=== PATIENT | male | born 1995 | race Caucasian/White ===

== ENCOUNTER 2019-01-27 18:08 | Emergency (ER) | payer SELFPAY ==
[2019-01-27 18:21] VITALS: BP 105/52
[2019-01-27] MEDS ORDERED: DIPH/PERTUSS(ACELL)/TETANUS VAC/PF 0.5 ML SYR (>=10YO) IM ONE (18:34)
--- NOTE | 2019-01-27 18:34 | ER Document Report ---
ED Medical Screen (RME) - General Chief Complaint: Laceration Stated Complaint: FOOT LACERATION Time Seen by Provider: 01/27/19 18:29 Primary Care Provider: ALEXIS MARCUM MD [Primary Care Provider] - Follow up as needed Mode of Arrival: Wheelchair Information source: Patient Notes: 23-year-old male presented to ED for laceration at the base of the great toe on the left foot. He states he was walking to the bathroom and tried to go around a plastic bag and is not sure what he cut his foot on. He does not know when his last tetanus shot was. States he is not taking any medication for the discomfort he came straight to the emergency room. He states he cut it about an hour before we saw him. Patient is alert oriented respirations regular unlabored speaking in full sentences. I have greeted and performed a rapid initial assessment of this patient. A comprehensive ED assessment and evaluation of the patient, analysis of test results and completion of medical decision making process will be conducted by an additional ED providers. Physical Exam - Vital signs Vitals: Temp Pulse Resp BP Pulse Ox 97.5 F 85 16 105/52 L 96 01/27/19 18:20 01/27/19 18:20 01/27/19 18:20 01/27/19 18:20 01/27/19 18:20 Course - Vital Signs Vital signs: Temp Pulse Resp BP Pulse Ox 97.5 F 85 16 105/52 L 96 01/27/19 18:20 01/27/19 18:20 01/27/19 18:20 01/27/19 18:20 01/27/19 18:20 Doctor's Discharge - Discharge Referrals: ALEXIS MARCUM MD [Primary Care Provider] - Follow up as needed
--- NOTE | 2019-01-27 18:59 | RADIOLOGY REPORT (SQ) ---
EXAM DESCRIPTION: FOOT LEFT COMPLETE COMPLETED DATE/TIME: 01/27/2019 6:48 pm REASON FOR STUDY: laceration at the base of the great toe COMPARISON: None. NUMBER OF VIEWS: Three views. TECHNIQUE: AP, lateral and oblique radiographic images acquired of the left foot. LIMITATIONS: None. FINDINGS: MINERALIZATION: Normal. BONES: No acute fracture or dislocation. No worrisome bone lesions. JOINTS: No effusions. SOFT TISSUES: No soft tissue swelling. No foreign body. OTHER: No other significant finding. IMPRESSION: NEGATIVE STUDY OF THE LEFT FOOT. NO RADIOGRAPHIC EVIDENCE OF ACUTE INJURY. TECHNICAL DOCUMENTATION: JOB ID: [id number] [employer]- All Rights Reserved Reading location - IP/workstation name: [email or web address]
--- NOTE | 2019-01-27 20:12 | ER Document Report ---
HPI - HPI Time Seen by Provider: 01/27/19 18:29 Pain Level: 2 Notes: 23-year-old male presented to ED for laceration at the base of the great toe on the left foot. He states he was walking to the bathroom and tried to go around a plastic bag and is not sure what he cut his foot on. He does not know when his last tetanus shot was. - REPRODUCTIVE Reproductive: DENIES: : Past Medical History - General Information source: Patient - Social History Smoking Status: Never Smoker Chew tobacco use (# tins/day): No Frequency of alcohol use: None Drug Abuse: None Family History: Reviewed & Not Pertinent Patient has suicidal ideation: No Patient has homicidal ideation: No - Medical History Medical History: Negative Surgical Hx: Negative - Immunizations Immunizations up to date: Yes Vertical Provider Document - CONSTITUTIONAL Notes: PHYSICAL EXAMINATION: GENERAL: Well-appearing, well-nourished and in no acute distress. HEAD: Atraumatic, normocephalic. EYES: Pupils equal round extraocular movements intact, conjunctiva are normal. ENT: Nares patent NECK: Normal range of motion LUNGS: No respiratory distress Musculoskeletal: Normal range of motion NEUROLOGICAL: Normal speech, normal gait. PSYCH: Normal mood, normal affect. SKIN: Abrasion noted to left great toe. No active bleeding noted. - INFECTION CONTROL TRAVEL OUTSIDE OF THE [place] IN LAST 30 DAYS: No Course - Re-evaluation Re-evalutation: X-ray negative for any retained foreign body or fracture. Patient has a tiny abrasion to the left great toe. No indication for closure at this time. Patient given wound care instructions and will be discharged home. Tetanus updated. The patient's emergency department workup and current diagnosis were explained to the patient and or family. Follow-up instructions were provided. Medications if prescribed were discussed. Instructions for when to return to the emergency department including specific worrisome symptoms were discussed with the patient and/or family. - Vital Signs Vital signs: Temp Pulse Resp BP Pulse Ox 97.5 F 85 16 105/52 L 96 01/27/19 18:20 01/27/19 18:20 01/27/19 18:20 01/27/19 18:20 01/27/19 18:20 Discharge - Discharge Clinical Impression: Abrasion Condition: Stable Disposition: HOME, SELF-CARE Instructions: Antibiotic Ointment Protection ([facility]), Laceration Care ([facility]), Prophylactic Antibiotic ([facility]), Soap Cleansing ([facility]), Tetanus Immunization Given ([facility]) Additional Instructions: Laceration Care Your laceration did not require suturing. Please follow the care instructions the doctor has outlined for you and return for further care, according to the schedule you've been given. Keep the wound and dressing clean. Unless you were told otherwise, you may shower daily, blotting the wound dry with a clean, unused towel. At other times, If the dressing gets wet or blood soaked, remove it and blot the wound dry, then reapply a new dressing. Unless you were instructed otherwise, dressings should be changed at least daily. If any signs of infection occur (swelling, redness, increasing tenderness, red streaks, tender lumps in the armpit or groin above the laceration, or fever), see the doctor immediately. Please return if you develop any signs of infection such as increased redness, swelling, foul-smelling drainage or fever. Prescriptions: Cephalexin [Keflex] 500 mg PO BID #14 capsule Forms: Return to Work Referrals: ALEXIS MARCUM MD [ACTIVE STAFF] - Follow up as needed
== END 2019-01-27 20:18 | disposition home or self-care (01) ==
LOC: ER 18:08
DX: S90.412A Abrasion, left great toe, initial encounter (principal); W45.8XXA Other foreign body or object entering through skin, initial encounter; Z23 Encounter for immunization
CPT/HCPCS: 90471; 90715; 99283